=== PATIENT | male | born 1980 | race Caucasian/White ===

== ENCOUNTER → 2024-03-09 12:00 | Outpatient (REF) | payer OTHER, SELFPAY | LOC: DHSLP 12:00 | PROVIDERS: ATTENDING PHYSICIAN Internal Medicine | DX: G47.33 Obstructive sleep apnea (adult) (pediatric) (principal); R09.02 Hypoxemia | CPT/HCPCS: 95800 ==

== ENCOUNTER → 2024-08-10 09:23 | Outpatient (REF) | payer OTHER, SELFPAY | LOC: RCS 09:23 | PROVIDERS: ATTENDING PHYSICIAN Internal Medicine; FAMILY PHYSICIAN Family Medicine | DX: I49.3 Ventricular premature depolarization (principal) | CPT/HCPCS: 93017; 93225; 93226 ==

== ENCOUNTER → 2024-08-14 13:35 | Outpatient (REF) | payer OTHER, SELFPAY | LOC: RCS 13:35 | PROVIDERS: ATTENDING PHYSICIAN Internal Medicine; FAMILY PHYSICIAN Family Medicine | DX: I49.3 Ventricular premature depolarization (principal) | CPT/HCPCS: 93306 ==

== ENCOUNTER → 2025-04-06 08:01 | Outpatient (REF) | payer OTHER, SELFPAY | LOC: RAD 08:01 | PROVIDERS: ATTENDING PHYSICIAN Nurse Practitioner Family; FAMILY PHYSICIAN Family Medicine | DX: R10.9 Unspecified abdominal pain (principal) | CPT/HCPCS: 74177; Q9967 ==

== ENCOUNTER 2025-09-17 13:28 | Emergency (ER) | payer OTHER, SELFPAY ==
[2025-09-17] VITALS (7 sets, daily range): BP systolic 140–220; BP diastolic 94–126; BMI 29.2
--- NOTE | 2025-09-17 13:57 | ED.GENMED ---
History of Present Illness
General
Chief Complaint: Chest Pain
Source: patient
Exam Limitations: none
Time Seen by Provider: 09/17/25 13:44
History of Present Illness
History of Present Illness:
45yoM with a history of fibromyalgia, GERD, anxiety, and erectile dysfunction presenting for evaluation of shakiness. Patient drank 'a bunch of coffee' this morning and also took a new preworkout that contained 400mg caffeine around 10:45 this
morning. He worked out at 11am and had no symptoms during exercise. Shortly after finishing his workout, he developed 'jitteriness' and states he feels overactive. He is also having pins and needles in his hands bilaterally. He had some right
sided chest discomfort the past 2 days but he had not had any chest pain today. No shortness of breath or syncope. He saw a physical therapist aide last year for PVCs. He had a stress test and an echocardiogram in July 2024 which was normal. He was told
his blood pressure was borderline but was not started on any medications.
Past History
Past History
ED Past Medical History: GERD and Other (Low testosterone, fibromyalgia,)
Social History
Tobacco: Non-smoker
Alcohol: None
Drug: None
Phy Exam
General Physical Exam
General Presentation: well appearing and no apparent distress
General Skin: warm and dry
General Habitus: normal
General Mental: alert
ENT Exam
ENT Exam: normocephalic
Cardiovascular Exam
Cardiovascular Exam: regular rate/rhythm, no edema, no murmur and normal peripheral pulses (2+ radial pulses bilaterally)
Pulmonary Exam
Pulmonary Exam: lungs clear, no respiratory distress, no rales, no crackles, no rhonchi and no wheezing
Neurological Exam
Neurological Exam: alert
Abril Coma Scale
Eye Opening: Spontaneous
Verbal Response: Oriented
Motor Response: Obeys Commands
GCS Total Score: 15
Skin Exam
Skin Exam: normal color and warm/dry
Psychiatric Exam
Psychiatric Exam: normal mood/affect
Scores
Heart Score for Chest Pain Patients
STEMI patient?: No
History: Slightly or Non-Suspicious
ECG: Nonspecific Repolarization
Age: </= 45 years
Risk Factors: 1 or 2 Risk Factors
Troponin: </= Normal Limit
Heart Score for Chest Pain Patients: 2
Heart Score Risk: 2.5% MACE over next 6 weeks
Course
Orders/Labs/Results
Orders:
Orders
09/17/25 13:32
Electrocardiogram (*1) Urgent
Reason for Study: Chest Pain
EKG- Treatment ONCE
09/17/25 13:54
Electrocardiogram (*1) Urgent
Reason for Study: Palpitations
Cardiac Monitoring- Treatment ONCE
EKG- Treatment ONCE
0.9% Sodium Chloride 1000 ml [Nss] 1,000 ml IV BOLUS
09/17/25 14:18
Complete Blood Count/With Diff Urgent
Comprehensive Metabolic Panel Urgent
Magnesium Urgent
TSH Reflex To Free T4 Urgent
Troponin I Urgent
09/17/25 14:18
09/17/25 14:18
Vital Signs
Initial and Last Documented VS:
Initial Vital Signs
Temp Pulse Resp BP Pulse Ox
98.9 F 92 18 220/126 97
09/17/25 13:29 09/17/25 13:29 09/17/25 13:29 09/17/25 13:29 09/17/25 13:29
Last Documented Vital Signs
Temp Pulse Resp BP Pulse Ox
98.9 F 98 17 157/94 98
09/17/25 13:29 09/17/25 16:15 09/17/25 16:15 09/17/25 16:00 09/17/25 16:15
MDM/Problems Addressed
Differential Diagnosis Includes:
45yoM here with jitteriness and bilateral hand tingling that started after consuming a large amount of caffeine today. No CP or SOB. He is hypertensive in triage to 220/126 which improved to 152/105 during initial exam. He is well appearing in no
distress and exam is reassuring. Differential diagnosis includes but is not limited to: adverse reaction of caffeine, dehydration, arrhythmia, less likely ACS
Initial ED plan: Check cardiac labs, magnesium, TSH, and EKG. IV fluid bolus.
*Pulse Oximetry
SaO2: 97
Oxygen Mode of Delivery: Room air
Patient hypoxic: no
*EKG
Interpreted by ED Provider?: Yes
EKG Intrepretation Date: 09/17/25
Heart Rate: 92
Rate: normal
Rhythm: sinus
[place]: normal axis
Interval: normal interval
QRS Pattern: normal QRS
Ischemia: other (nonspecific T wave abnormality )
*Critical Care Note
Total Time (30-74mins, 75-104mins- exclusive of procedures): Not Applicable
Update Note
Update Note:
Labs unremarkable including normal electrolytes and TSH. Troponin undetectable. On reassessment, patient is feeling significantly improved on reassessment. No indication for hospitalization. Suspect symptoms are related to caffeine intake. He
was advised to stop taking preworkout and follow-up with his PCP for blood pressure recheck. ED return precautions reviewed. Patient agreed with plan and was discharged in stable condition.
ED Attending Note
-
Portions of this chart may have been created with voice recognition software.� Occasional wrong word or��sound alike� substitutions may have occurred due to the inherent limitations of voice recognition software.
Discharge Plan
Departure
Patient Disposition: Home (Routine Discharge)
Date of Disposition: 09/17/25
Time of Disposition: 15:48
Patient with high blood pressure during this ER visit?: Yes
Discharge Problem:
Caffeine adverse reaction, Feeling jittery
Instructions: Heart Palpitations
Referrals:
Enrique Pimentel DO [Family Provider, Family Practice]
Activity Restrictions/Additional Instructions:
Stop taking preworkout supplements.
Please call today to schedule a follow-up appointment with your family doctor. Return to the ER with any new or worsening symptoms.
Interventions
Interventions:
*Risk Screen - Suicide Last Done: 09/17/25 13:29
*General Assessment Last Done: 09/17/25 13:29
*Neglect/Abuse Screening Last Done: 09/17/25 13:29
*ED COVID-19 Vaccine History Last Done: 09/17/25 13:45
*ED Influenza Vaccine History Last Done: 09/17/25 13:45
[facility] Fall Risk Assessment Tool Last Done: 09/17/25 14:00
*Nursing Disposition Last Done: 09/17/25 16:35
ED- Cardiac Assessment Last Done: 09/17/25 14:15
ED- Neurological Assessment Last Done: 09/17/25 14:15
ED- Pulmonary Assessment Last Done: 09/17/25 14:15
Discharge Date and Time
Discharge Date/Time: 09/17/25 16:35
Print Language: FRENCH
[2025-09-17 14:27] LABS: Hematocrit 47.8 % (39.0-52.0); Hemoglobin 16.9 g/dL (13.0-18.0); Mean Corp Hgb Conc. 35.4 g/dL (33.0-37.0); Mean Corpuscular Volume 82.6 fL (80.0-94.0); Nucleated Red Blood Cells % 0 % (-); Platelet Count 179 10^3/uL (130-400); Red Cell Dist. Width 11.7 % (11.5-14.5)
[2025-09-17] MEDS: NSS 1000 IV (14:29)
--- NOTE | 2025-09-17 14:32 | EDRN ---
Pt OOB to BR. REpeat EKG done.
[2025-09-17 14:46] LABS: ALT (SGPT) 42 U/L (0-50); AST (SGOT) 28 U/L (17-59); Albumin 4.6 g/dl (3.5-5.0); Alkaline Phosphatase 56 U/L (38-126); Blood Urea Nitrogen 17 mg/dl (9-20); Calcium 9.4 mg/dl (8.4-10.2); Carbon Dioxide 28 mmol/L (22-30); Chloride 102 mmol/L (98-107); Estimated Creatinine Clearance 69 ml/min; Glucose 95 mg/dl (70-99); Magnesium 1.6 mg/dl (1.6-2.3); Potassium 4.1 mmol/L (3.5-5.1); Sodium 135 mmol/L (135-145); Total Protein 7.4 g/dl (6.3-8.2); eGFR > 60.00
[2025-09-17 14:57] LABS: Troponin I < 0.012 ng/ml
--- NOTE | 2025-09-17 15:39 | EDRN ---
Jay GAN in room w/ pt.
== END 2025-09-17 16:35 | disposition home or self-care (01) ==
LOC: EMR 13:28
PROVIDERS: Physician Assistant; EMERGENCY PHYSICIAN Student in an Organized Health Care Education/Training Program; FAMILY PHYSICIAN Family Medicine
DX: R42 Dizziness and giddiness (principal); T43.615A Adverse effect of caffeine, initial encounter; X58.XXXA Exposure to other specified factors, initial encounter
CPT/HCPCS: 99284; 96360; 80053; 83735; 84443; 84484; 85025; 93005